=== PATIENT | male | born 2000 | race Caucasian/White ===

== ENCOUNTER 2025-03-02 09:45 | Emergency (ER) | payer BC ==
[2025-03-02 10:18] LABS: BASOPHILS ABSOLUTE AUTO 0.1 K/mm3 (0.0-0.2); BASOPHILS PERCENT AUTO 0.4 % (0.0-1.0); EOSINOPHILS ABSOLUTE AUTO 0.1 K/mm3 (0.0-0.4); EOSINOPHILS PERCENT AUTO 0.5 % (0.0-6.0); IMMATURE GRAN ABSOLUTE AUTO 0.05 K/mm3 (0.00-0.05); IMMATURE GRAN PERCENT AUTO 0.3 % (0.0-0.4); LYMPHOCYTES ABSOLUTE AUTO 1.6 K/mm3 (1.0-4.8); LYMPHOCYTES PERCENT AUTO 10.1 % (24.0-44.0); MEAN PLATELET VOLUME 9.3 fl (9.4-12.4); MONOCYTES ABSOLUTE AUTO 0.6 K/mm3 (0.0-0.8); MONOCYTES PERCENT AUTO 4.0 % (0.0-8.0); NEUTROPHILS ABSOLUTE AUTO 13.0 K/mm3 (1.8-7.7); NEUTROPHILS PERCENT AUTO 84.7 % (41.0-71.0); NRBC ABSOLUTE 0.00 (0.00-0.02); NRBC PERCENT 0.0 % (0.0-0.2); PLATELET COUNT,PLT 260 K/mm3 (150-400); RED BLOOD CELL COUNT 5.01 M/mm3 (4.52-5.90); WHITE BLOOD CELL COUNT,WBC 15.37 K/mm3 (3.9-11.3)
[2025-03-02] MEDS: Ondansetron 4 MG/2 ML SDV IVPUSH ONE (10:20)
[2025-03-02] MEDS: Sodium Chloride 0.9% 10 ML Syringe FLUSH PRN (10:20)
[2025-03-02 10:48] LABS: ALANINE AMINOTRANSFERASE,ALT 40 U/L (16-63); BLOOD UREA NITROGEN,BUN 15 mg/dL (7-18); POTASSIUM,K 3.9 mEq/L (3.5-5.1); SODIUM,NA 143 mEq/L (136-145)
[2025-03-02 11:04] LABS: A/G RATIO 1.6 (1-2); ASPARTATE AMNIOTRANSFERASE,AST 27 U/L (15-37); BILIRUBIN TOTAL 0.6 mg/dL (0.2-1.0); CARBON DIOXIDE,CO2 21 mEq/L (21-32); CHLORIDE,CL 107 mEq/L (98-107); CREATININE 1.0 mg/dL (0.7-1.3); ESTIMATED GFR 109 mL/min (>60); GLUCOSE RANDOM 101 mg/dL (70-99); PROTEIN TOTAL,TP 8.4 g/dl (6.4-8.2)
[2025-03-02 11:10] LABS: ETHANOL BLOOD MEDICAL 0.00 gm% (0.00)
== END 2025-03-02 12:10 | disposition home or self-care (01) ==
LOC: JD.ED 09:45
DX: R11.2 Nausea with vomiting, unspecified (principal)
CPT/HCPCS: 36415; 80053; 80307; 83690; 83735; 85025; 96361; 96374; 96375; 99284; J2405; J7030; 99283; J1171

== ENCOUNTER 2025-03-02 12:54 | Emergency (ER) | payer BC ==
[2025-03-02] MEDS: Ondansetron 4 MG/2 ML SDV IVPUSH ONE (13:53)
[2025-03-02 14:10] LABS: BASOPHILS ABSOLUTE AUTO 0.0 K/mm3 (0.0-0.2); BASOPHILS PERCENT AUTO 0.2 % (0.0-1.0); EOSINOPHILS ABSOLUTE AUTO 0.0 K/mm3 (0.0-0.4); EOSINOPHILS PERCENT AUTO 0.0 % (0.0-6.0); IMMATURE GRAN ABSOLUTE AUTO 0.07 K/mm3 (0.00-0.05); IMMATURE GRAN PERCENT AUTO 0.5 % (0.0-0.4); LYMPHOCYTES ABSOLUTE AUTO 0.9 K/mm3 (1.0-4.8); LYMPHOCYTES PERCENT AUTO 5.5 % (24.0-44.0); MEAN PLATELET VOLUME 9.2 fl (9.4-12.4); MONOCYTES ABSOLUTE AUTO 0.4 K/mm3 (0.0-0.8); MONOCYTES PERCENT AUTO 2.8 % (0.0-8.0); NEUTROPHILS ABSOLUTE AUTO 14.0 K/mm3 (1.8-7.7); NEUTROPHILS PERCENT AUTO 91.0 % (41.0-71.0); NRBC ABSOLUTE 0.00 (0.00-0.02); NRBC PERCENT 0.0 % (0.0-0.2); PLATELET COUNT,PLT 227 K/mm3 (150-400); RED BLOOD CELL COUNT 4.52 M/mm3 (4.52-5.90); WHITE BLOOD CELL COUNT,WBC 15.42 K/mm3 (3.9-11.3)
[2025-03-02 14:19] LABS: A/G RATIO 1.6 (1-2); ALANINE AMINOTRANSFERASE,ALT 34 U/L (16-63); ASPARTATE AMNIOTRANSFERASE,AST 23 U/L (15-37); BILIRUBIN TOTAL 0.8 mg/dL (0.2-1.0); BLOOD UREA NITROGEN,BUN 17 mg/dL (7-18); CARBON DIOXIDE,CO2 24 mEq/L (21-32); CHLORIDE,CL 107 mEq/L (98-107); CREATININE 1.0 mg/dL (0.7-1.3); EST CRCL DRUG DOSING (CG) 95.15 mL/min; ESTIMATED GFR 109 mL/min (>60); GLUCOSE RANDOM 131 mg/dL (70-99); POTASSIUM,K 3.9 mEq/L (3.5-5.1); PROTEIN TOTAL,TP 7.7 g/dl (6.4-8.2); SODIUM,NA 143 mEq/L (136-145)
[2025-03-02] MEDS ORDERED: Sodium Chloride 0.9% 10 ML Syringe FLUSH PRN (15:28)
[2025-03-02] MEDS: Sodium Chloride 0.9% 10 ML Syringe FLUSH PRN (15:51)
[2025-03-02] MEDS: Iopamidol 612 MG/ML 100 ML Bottle IVPUSH ONE (15:51)
== END 2025-03-02 16:57 | disposition home or self-care (01) ==
LOC: JD.ED 12:54
DX: R11.2 Nausea with vomiting, unspecified (principal)
CPT/HCPCS: 36415; 74177; 80053; 83690; 83735; 85025; 86140; 96361; 96374; 99284; J2405; J7030; Q9967

== ENCOUNTER 2025-03-05 07:07 | Emergency (ER) | payer BC ==
[2025-03-05] MEDS: Ondansetron 4 MG/2 ML SDV IVPUSH ONE (07:36)
[2025-03-05 07:38] LABS: BASOPHILS ABSOLUTE AUTO 0.0 K/mm3 (0.0-0.2); BASOPHILS PERCENT AUTO 0.3 % (0.0-1.0); EOSINOPHILS ABSOLUTE AUTO 0.0 K/mm3 (0.0-0.4); EOSINOPHILS PERCENT AUTO 0.2 % (0.0-6.0); IMMATURE GRAN ABSOLUTE AUTO 0.03 K/mm3 (0.00-0.05); IMMATURE GRAN PERCENT AUTO 0.3 % (0.0-0.4); LYMPHOCYTES ABSOLUTE AUTO 1.4 K/mm3 (1.0-4.8); LYMPHOCYTES PERCENT AUTO 13.4 % (24.0-44.0); MEAN PLATELET VOLUME 9.1 fl (9.4-12.4); MONOCYTES ABSOLUTE AUTO 0.5 K/mm3 (0.0-0.8); MONOCYTES PERCENT AUTO 5.1 % (0.0-8.0); NEUTROPHILS ABSOLUTE AUTO 8.5 K/mm3 (1.8-7.7); NEUTROPHILS PERCENT AUTO 80.7 % (41.0-71.0); NRBC ABSOLUTE 0.00 (0.00-0.02); NRBC PERCENT 0.0 % (0.0-0.2); PLATELET COUNT,PLT 221 K/mm3 (150-400); RED BLOOD CELL COUNT 4.70 M/mm3 (4.52-5.90); WHITE BLOOD CELL COUNT,WBC 10.56 K/mm3 (3.9-11.3)
[2025-03-05] MEDS: Sodium Chloride 0.9% 10 ML Syringe FLUSH PRN (07:42)
[2025-03-05 08:01] LABS: A/G RATIO 1.6 (1-2); ALANINE AMINOTRANSFERASE,ALT 39.0 U/L (16-63); ASPARTATE AMNIOTRANSFERASE,AST 22.0 U/L (15-37); BILIRUBIN TOTAL 1.3 mg/dL (0.2-1.0); BLOOD UREA NITROGEN,BUN 21.0 mg/dL (7-18); CARBON DIOXIDE,CO2 23.0 mEq/L (21-32); CREATININE 1.0 mg/dL (0.7-1.3); EST CRCL DRUG DOSING (CG) 98.33 mL/min; ESTIMATED GFR 109.0 mL/min (>60); GLUCOSE RANDOM 98.0 mg/dL (70-99); PROTEIN TOTAL,TP 7.5 g/dl (6.4-8.2)
[2025-03-05 08:09] LABS: POTASSIUM,K 3.4 mEq/L (3.5-5.1)
[2025-03-05 08:14] LABS: CHLORIDE,CL 100.0 mEq/L (98-107); SODIUM,NA 139.0 mEq/L (136-145)
[2025-03-05 08:17] LABS: ETHANOL BLOOD MEDICAL 0.0 gm% (0.00)
[2025-03-05] MEDS: diphenhydrAMINE 50 MG/ML SDV IVPUSH ONE (09:26)
[2025-03-05] MEDS: Ondansetron 4 MG Tab.DIS PO ONE (11:17)
[2025-03-05] MEDS: Lactated Ringers 1,000 ML IV SCH (11:18)
[2025-03-05 15:00] LABS: APPEARANCE,URINE CLEAR (Clear); GLUCOSE,URINE NEGATIVE (Negative); OCCULT BLOOD,URINE 3+ (Negative)
[2025-03-05 15:17] LABS: EPITHELIAL CELLS,URINE 0-5 /hpf (0-5)
== END 2025-03-05 15:20 | disposition home or self-care (01) ==
LOC: JD.ED 07:07
DX: R11.2 Nausea with vomiting, unspecified (principal); Z86.16 Personal history of COVID-19
CPT/HCPCS: 36415; 80053; 80307; 81001; 83690; 85025; 93005; 96361; 96374; 96375; 99284; A9270; J1200; J1308; J2405; J2765; J7030; J7120; J1171